=== PATIENT | male | born 1935 | race Caucasian/White ===

== ENCOUNTER → 2016-08-22 | Outpatient (CLI) | payer MEDICARE ==
[~2016-08-22] MED LIST: AMLO10TA2; PRAV10TA2
--- NOTE | 2016-08-22 13:11 | CARD ---
APPROVED REPORT EXAM: Two-dimensional and M-mode echocardiogram with Doppler and color Doppler. Other Information Quality : Average INDICATION SOB 2D DIMENSIONS RVDd3.5 (2.9-3.5cm)Left Atrium(2D)3.5 (1.6-4.0cm) IVSd0.9 (0.7-1.1cm)Aortic Root(2D)3.1 (2.0-3.7cm) LVDd5.6 (3.9-5.9cm)LVOT Diameter2.0 (1.8-2.4cm) PWd1.0 (0.7-1.1cm)LVDs2.9 (2.5-4.0cm) FS (%) 47.9 %SV120.8 ml LVEF(%)78.8 (>50%) Aortic Valve AoV Peak Chi.152.8cm/sAoV VTI31.4cm AO Peak GR.9.3mmHgLVOT Peak Chi.158.9cm/s LVOT VTI 31.23cmAO Mean GR.5mmHg KIMMY (VMAX)3.71gf1JUK (VTI)2.98cm2 Mitral Valve MV E Lspgtwsh58.9cm/sMV DECEL QBRQ021nv MV A Npttvlyo43.1cm/sMV E Mean Gr.2mmHg MV RNV97fuR/A Ratio1.1 MV A Ernorcgs88usWVX (PHT)3.08cm2 TDI E/Lateral E'7.7E/Medial E'10.0 Pulmonary Valve PV Peak Mgzapnzi494.6cm/sPV Peak Grad.6mmHg RVOT VTI21.3cm Tricuspid Valve TR P. Dlwwmshw971gf/sTR Peak Gr.40mmHg Pulmonary Vein S1 Owmdcqvt846.7cm/sD2 Naimaigr00.4cm/s LEFT VENTRICLE The left ventricle is normal size. There is normal left ventricular wall thickness. The left ventricu lar systolic function is normal The ejection fraction is 65%. There is normal LV segmental wall motio n. The left ventricular diastolic function and filling is normal for age. RIGHT VENTRICLE The right ventricle is normal size. There is normal right ventricular wall thickness. The right ventr icular systolic function is normal. ATRIA The left atrium size is normal. The right atrium size is normal. The interatrial septum is intact wit h no evidence for an atrial septal defect or patent foramen ovale as noted on 2-D or Doppler imaging. AORTIC VALVE The aortic valve is normal in structure and function. Doppler and Color Flow revealed no significant aortic regurgitation. There is no significant aortic valvular stenosis. There is no aortic valvular v egetation. MITRAL VALVE The mitral valve is normal in structure and function. Doppler and Color Flow revealed mild mitral reg urgitation. TRICUSPID VALVE The tricuspid valve is normal in structure and function. Doppler and Color Flow revealed mild tricusp id regurgitation. The PA pressure was estimated at 43 mmHg. PULMONIC VALVE The pulmonary valve is normal in structure and function. Doppler and Color Flow revealed no pulmonic valvular regurgitation. GREAT VESSELS The aortic root is normal in size. Normal pulmonary venous flow (Doppler). The IVC is normal in size and collapses >50% with inspiration. PERICARDIAL EFFUSION There is no pleural effusion. There is no evidence of significant pericardial effusion. Critical Notification Critical Value: No <Conclusion> The left ventricular systolic function is normal The ejection fraction is 65%. There is normal LV segmental wall motion. Mild mitral regurgitation. Mild tricuspid regurgitation. The PA pressure was estimated at 43 mmHg. There is no evidence of significant pericardial effusion.
== END | disposition home or self-care (01) ==
LOC: ECHO 12:12
PROVIDERS: ATTEND Internal Medicine
DX: I08.1 Rheumatic disorders of both mitral and tricuspid valves (principal); I10 Essential (primary) hypertension
CPT/HCPCS: 93306

== ENCOUNTER → 2017-12-18 | Outpatient (CLI) | payer MEDICARE ==
[~2017-12-18] MED LIST changes: -AMLO10TA2; +AMLO10TA6
--- NOTE | 2017-12-18 07:45 | RAD ---
Right lower extremity venous ultrasound, 12/18/2017 : History: Right calf pain Duplex evaluation including grayscale, color flow and spectral Doppler analysis was performed. The femoral and popliteal veins show no filling defects to suggest DVT. The visualized deep veins in the right calf are unremarkable. There is an elongated hypoechoic complex structure in the medial aspect of the right calf. It demonstrates heterogeneous internal echoes. It measures approximately 8.4 x 1.4 x 4.5 cm in greatest dimensions. It lies along the surface of the musculature. A hematoma is most likely. IMPRESSION: 1. There is no sonographic evidence of deep vein thrombosis in the right lower extremity 2. Elongated right medial calf mass most compatible with a hematoma. An infectious or neoplastic etiology is less likely. Electronically signed by: David Sanchez MD (12/18/2017 7:42 AM) [facility]
== END | disposition home or self-care (01) ==
LOC: US 06:31
PROVIDERS: ATTEND Internal Medicine
DX: M79.89 Other specified soft tissue disorders (principal)
CPT/HCPCS: 93971

== ENCOUNTER → 2018-01-01 | Outpatient (CLI) | payer MEDICARE ==
--- NOTE | 2018-01-01 16:38 | KCIC ---
CT LOWER EXTREMITY WO RIGHT Indication: Right calf pain. Mass identified on recent ultrasound. Exposure: One or more of the following individualized dose reduction techniques were utilized for this examination: 1. Automated exposure control 2. Adjustment of the mA and/or kV according to patient size 3. Use of iterative reconstruction technique. Comparison: Ultrasound December 18, 2017. Contrast: Intravenous contrast was not given. FINDINGS: There is a superficial soft tissue collection in the posteromedial calf, superficial to the medial gastrocnemius muscle. This measures 17 Hounsfield units compatible with fluid. This was more accurately measured by ultrasound, but by CT measures approximately 8 cm x 5.5 cm x 2 cm. This does contain a thin wall. This has a crescentic morphology. Just above this, there is a partially visualized Gerber's cyst which appears to dissect into the upper medial calf anterior to the medial gastrocnemius muscle. This demonstrates some irregular hyperdensity suggesting blood product. These 2 collections do not definitely communicate. Mild stranding within the subcutaneous fat. No evidence of bone destruction or acute fracture. IMPRESSION: 1. There is a flat fluid collection superficial to the medial gastrocnemius muscle. Most likely considerations include hematoma, abscess or dissection of a Gerber's cyst. 2. Partially visualized Gerber's cyst. This extends into the calf along the anterior medial gastrocnemius, with some hyperdensity suggesting blood product. 3. Characterization of these abnormalities by CT is limited. Although statistically unlikely, soft tissue mass is difficult to exclude, particularly if these are incidental findings without a history of trauma. If the patient is able to undergo an MRI exam, that would provide much better characterization. Electronically signed by: Leonidas Sosa MD (01/01/2018 4:35 PM) [facility]
== END | disposition home or self-care (01) ==
LOC: KCIC CT 13:26
PROVIDERS: ATTEND Internal Medicine
DX: M71.21 Synovial cyst of popliteal space [Baker], right knee (principal); M17.12 Unilateral primary osteoarthritis, left knee; I10 Essential (primary) hypertension; E78.49 Other hyperlipidemia
CPT/HCPCS: 73700

== ENCOUNTER → 2018-01-08 | Outpatient (CLI) | payer MEDICARE ==
--- NOTE | 2018-01-08 15:01 | KCIC ---
MR of the right calf HISTORY: Right calf pain, mass. Medial calf pain and mass in recent weeks. TECHNIQUE: Routine multiplanar sequences are obtained. FINDINGS: Complex collection identified along the posterior aspect of the medial gastrocnemius muscle. This may be just superficial to the muscle and deep to the fascia or within the superficial muscle itself. Measures 4.5 cm x 9.5 cm x 1.4 cm. Consists of heterogeneous internal signal with both hyperintense T1 and hyperintense T2 content, as well as septations. Moderately thick hypointense rim, suggesting hemosiderin. Partially visualized Gerber's cyst. This does dissect into the proximal calf anterior to the medial gastrocnemius muscle. This aspect of the cyst demonstrates heterogeneous content suggesting hemorrhage. This appears to be separate from the collection discussed above. Mild intramuscular gastrocnemius edema, greatest medially. Mild subcutaneous edema around the visualized lower leg. No bone lesion or bone destruction. No acute fracture. Partially visualized joint effusion at the knee. IMPRESSION: 1. Complex collection at the superficial medial gastrocnemius muscle, most likely a hematoma. If there is no explanatory clinical history, i.e. trauma or anticoagulation, it may be helpful to obtain a follow-up MRI if this does not clinically resolve. 2. 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 Electronically signed by: Leonidas Sosa MD (01/08/2018 2:57 PM) [facility]
== END | disposition home or self-care (01) ==
LOC: KCIC MRI 13:08
PROVIDERS: ATTEND Internal Medicine
DX: M71.21 Synovial cyst of popliteal space [Baker], right knee (principal); M25.461 Effusion, right knee; R60.0 Localized edema
CPT/HCPCS: 73718